=== PATIENT | female | born 1995 | race American Indian/Alaskan Native ===

== ENCOUNTER 2021-08-06 19:36 | Outpatient (CLI) | payer MEDICAID ==
[2021-08-06 20:24] VITALS: BP 130/67
[2021-08-06] MEDS ORDERED: LACTATED RINGERS 1,000 ML IV ONE (20:35)
== END 2021-08-06 21:45 | disposition home or self-care (01) ==
LOC: TRG 19:36 → APU 19:46 → TRG 21:45
DX: O26.853 Spotting complicating pregnancy, third trimester (principal); Z3A.31 31 weeks gestation of pregnancy
CPT/HCPCS: 59025

== ENCOUNTER 2021-09-22 15:24 | Outpatient (CLI) | payer MEDICAID ==
[2021-09-22 18:39] VITALS: BP 134/59
--- NOTE | 2021-09-22 19:33 | Ultrasound Report ---
ULTRASOUND OBSTETRIC LIMITED ULTRASOUND BIOPHYSICAL PROFILE INDICATION / CLINICAL INFORMATION: well being. Clinical Gestational Age (GA) in weeks, days: 38, 3 TECHNIQUE: Transabdominal. COMPARISON: None available. FINDINGS: BREATHING MOVEMENT = 2 GROSS BODY MOVEMENT = 2 TONE = 2 QUALITATIVE AMNIOTIC FLUID VOLUME = 2 TOTAL BIOPHYSICAL SCORE = 8/8 HEART RATE (beats per minute): 137 AMNIOTIC FLUID INDEX (cm) = 10.7 (normal = 7-24 cm) PRESENTATION: Cephalic. ADDITIONAL FINDINGS: None. IMPRESSION: 1. Biophysical Score = 8/8 Signer Name: Rik Brush DO Signed: 09/22/2021 7:28 PM Workstation Name: [id number]
== END 2021-09-22 19:02 | disposition home or self-care (01) ==
LOC: TRG 15:24 → APU 15:27 → TRG 19:02
PROVIDERS: ATTEND Obstetrics & Gynecology
DX: Z34.93 Encounter for supervision of normal pregnancy, unspecified, third trimester (principal); Z3A.38 38 weeks gestation of pregnancy
CPT/HCPCS: 36415; 76815; 76819; 84112